=== PATIENT | male | born 1990 | race Caucasian/White ===

== ENCOUNTER 2025-06-03 13:46 | Emergency (ER) | payer SELFPAY | END 2025-06-03 14:51 | LOC: NAV ERS 13:46 | DX: R00.2 Palpitations (principal); F41.9 Anxiety disorder, unspecified; I10 Essential (primary) hypertension; F17.290 Nicotine dependence, other tobacco product, uncomplicated; Z02.89 Encounter for other administrative examinations | CPT/HCPCS: 93005; 94760; 99285 ==